=== PATIENT | female | born 1985 | race Caucasian/White ===

== ENCOUNTER 2020-03-07 14:52 | Emergency (ER) | payer MEDICAID ==
[~2020-03-07] VITALS: Ht 152.4 cm; Wt 80.3 kg
[2020-03-07 15:22] VITALS: BP 145/80
--- NOTE | 2020-03-07 15:25 | NUR ---
PT SENT TO LOBBY TO WAIT FOR AVAILABLE BED.
[2020-03-07] MEDS ORDERED: HYDROcodone/APAP 5/325 MG 1 TAB TAB PO ONE (16:50)
--- NOTE | 2020-03-07 17:08 | NUR ---
medicated as per [facility] order, tolerated well.
[2020-03-07 18:04] LABS: APPEARANCE,URINE SL CLOUDY (CLEAR); BILIRUBIN,URINE NEGATIVE (NEGATIVE); BLOOD, URINE 2+ (NEGATIVE); COLOR,URINE YELLOW (YELLOW); LEUKOCYTE ESTERASE ,URINE 1+ (NEGATIVE); NITRITE, URINE NEGATIVE (NEGATIVE); UGLUCOSE NEGATIVE (NEGATIVE)
--- NOTE | 2020-03-07 18:34 | NUR ---
Patient discharged with v/s stable. Written and verbal after care instructions given and explained. Patient alert, oriented and verbalized understanding of instructions. Ambulatory with steady gait. All questions addressed prior to discharge. ID band removed. Patient advised to follow up with PMD. Rx of norco, levofloxacin given. Patient educated on indication of medication including possible reaction and side effects. Opportunity to ask questions provided and answered.
== END 2020-03-07 18:34 | disposition home or self-care (01) ==
LOC: MED 14:52
DX: N39.0 Urinary tract infection, site not specified (principal); N12 Tubulo-interstitial nephritis, not specified as acute or chronic; Z98.890 Other specified postprocedural states; Z87.442 Personal history of urinary calculi
CPT/HCPCS: 81001; 81025; 87086; 99284